=== PATIENT | female | born 1955 | race Caucasian/White ===

== ENCOUNTER 2019-02-06 13:25 | Outpatient (CLI) | payer OTHER | END 2019-02-06 14:20 | disposition home or self-care (01) | LOC: MRD 13:25 → EDSTATUS 02-10 07:30 | PROVIDERS: ATTEND Surgery | DX: Z01.818 Encounter for other preprocedural examination (principal) | CPT/HCPCS: 71045; 93005 ==

== ENCOUNTER 2019-03-14 12:29 | Outpatient (CLI) | payer OTHER ==
[~2019-03-14] VITALS: Ht 165.1 cm; Wt 57.6 kg
[2019-03-17] MEDS ORDERED: LIDOCAINE 1% 500 MG/50 ML VIAL ONE (07:15)
[2019-03-17] MEDS ORDERED: ceFAZolin 1,000 MG VIAL ONE (07:15)
[2019-03-17] MEDS ORDERED: BUPIVACAINE-MPF/EPI 0.25% 30 ML VIAL INJ ONE (07:15)
== END 2019-03-14 23:55 | disposition home or self-care (01) ==
LOC: MRD 12:29 → MDS 03-17 06:07 → MMU 03-17 06:10 → EDSTATUS 03-17 07:30
PROVIDERS: ATTEND Surgery
DX: Z01.818 Encounter for other preprocedural examination (principal); E78.00 Pure hypercholesterolemia, unspecified; Z85.3 Personal history of malignant neoplasm of breast; Z98.890 Other specified postprocedural states
CPT/HCPCS: 71045; 93005; Q0092; J0690; J1644; J2001; J3490; J7060

== ENCOUNTER 2019-04-21 07:12 | Day surgery (SDC) | payer OTHER ==
[~2019-04-21] VITALS: Ht 165.1 cm; Wt 57.2 kg
[2019-04-21] MEDS ORDERED: OMEP20TC12 PO (07:58)
[2019-04-21] MEDS ORDERED: CLARIT (07:58)
[2019-04-21] MEDS ORDERED: AMOX500T3 PO (07:58)
[2019-04-21] MEDS ORDERED: LIDOCAINE 1% 500 MG/50 ML VIAL ONE (08:27)
[2019-04-21] MEDS ORDERED: BUPIVACAINE-MPF/EPI 0.25% 30 ML VIAL INJ ONE (08:27)
[2019-04-21] MEDS ORDERED: ceFAZolin 1,000 MG VIAL ONE (08:27)
[2019-04-21] MEDS ORDERED: PROPOFOL 200 MG/20 ML VIAL IV ONE (09:25)
[2019-04-21] MEDS ORDERED: MORPHINE SULFATE 2 MG/ML SYR IVP PRN (10:20)
[2019-04-21] MEDS ORDERED: ONDANSETRON 4 MG/2 ML VIAL IVP PRN ×2 (10:20→10:25)
[2019-04-21] MEDS ORDERED: HYDROmorphone 1 MG/ML AMP IVP PRN ×2 (10:20→10:25)
[2019-04-21] MEDS ORDERED: MORPHINE SULFATE 4 MG/ML SYR IV PRN (10:20)
[2019-04-21] MEDS ORDERED: HYDROcodone/APAP 5/325 MG 1 TAB TAB PO PRN (10:20)
[2019-04-21] MEDS: HYDROmorphone PFS 2 MG/ML SYR ONE ×2 (10:25→10:35)
== END 2019-04-21 12:00 | disposition home or self-care (01) ==
LOC: MOR 07:12 → MMU 07:13 → MOR 12:00
PROVIDERS: ATTEND Surgery
DX: Z45.2 Encounter for adjustment and management of vascular access device (principal); C50.912 Malignant neoplasm of unspecified site of left female breast; C77.3 Secondary and unspecified malignant neoplasm of axilla and upper limb lymph nodes; E78.00 Pure hypercholesterolemia, unspecified; Z88.0 Allergy status to penicillin; Z88.8 Allergy status to other drugs, medicaments and biological substances
CPT/HCPCS: 36561; 71045; C1788; J0690; J1170; J1644; J2001; J2704; J3490; J7030; J7060; J7120; Q0092; 77003

== ENCOUNTER 2020-07-25 06:21 | Day surgery (SDC) | payer OTHER, SELFPAY ==
[~2020-07-25] VITALS: Ht 165.1 cm; Wt 57.2 kg
[~2020-07-25 06:21] MED LIST: AMOX500T3 PO; CLARIT; OMEP20TC12 PO
[2020-07-25 06:58] LABS: BASOPHILS % (AUTO) 0.1 % (0.0-2.0); EOSINOPHILS # (AUTO) 0.2 K/uL (0-0.4); EOSINOPHILS % (AUTO) 6.5 % (0.0-4.0); HEMATOCRIT 24.1 % (36-48); HEMOGLOBIN 8.1 g/dL (12.0-16.0); LYMPHOCYTES # (AUTO) 0.6 K/uL (2.5-16.5); LYMPHOCYTES % (AUTO) 19.4 % (20.5-51.1); MEAN CORPUSCULAR HEMOGLOBIN 34 pg (27-31); MEAN CORPUSCULAR HGB CONC 34 g/dL (33-37); MEAN CORPUSCULAR VOLUME 100.6 fL (80-94); MONOCYTES # (AUTO) 0.3 K/uL (0.8-1.0); MONOCYTES % (AUTO) 10.9 % (1.7-9.3); NEUTROPHILS % (AUTO) 63.1 % (42.2-75.2); PLATELET COUNT (AUTO) 196 K/uL (140-450); RED CELL DISTRIBUTION WIDTH 13.6 % (11.6-13.7); WHITE BLOOD COUNT (AUTO) 3.1 K/uL (4.8-10.8)
[2020-07-25] MEDS ORDERED: LIDOCAINE/EPI MPF 1%1:200000 30 ML VIAL INJ ONE (07:06)
[2020-07-25] MEDS ORDERED: BUPIVACAINE-MPF/EPI 0.25% 30 ML VIAL INJ ONE (07:06)
[2020-07-25 07:14] LABS: ANION GAP 19.1 (8-16); CARBON DIOXIDE 15.7 mmol/L (21-32); CREATININE 0.4 mg/dL (0.6-1.3); POTASSIUM 3.8 mmol/L (3.5-5.1); TOTAL BILIRUBIN 0.2 mg/dL (0.0-1.0)
[2020-07-25] MEDS ORDERED: BUPIVACAINE-MPF/EPI 0.25% 10 ML VIAL INJ ONE (07:58)
[2020-07-25] MEDS ORDERED: LIDOCAINE/EPI 1% 1:100000 20 ML VIAL INJ ONE (07:58)
[2020-07-25] MEDS ORDERED: fentaNYL citrate 0.05 MG/ML VIAL ONE (08:02)
[2020-07-25] MEDS ORDERED: MIDAZOLAM 2 MG/2 ML VIAL ONE (08:02)
[2020-07-25] MEDS ORDERED: KETOROLAC 30 MG/ML VIAL ONE (08:02)
[2020-07-25] MEDS ORDERED: HYDROmorphone 1 MG/ML AMP IVP PRN (08:40)
[2020-07-25] MEDS ORDERED: HYDROmorphone PFS 2 MG/ML SYR IVP PRN (08:40)
[2020-07-25] MEDS ORDERED: MORPHINE SULFATE 4 MG/ML SYR IV PRN (08:40)
[2020-07-25] MEDS ORDERED: MORPHINE SULFATE 2 MG/ML SYR IVP PRN (08:40)
[2020-07-25] MEDS ORDERED: ONDANSETRON 4 MG/2 ML VIAL IV PRN (08:40)
== END 2020-07-25 09:50 | disposition home or self-care (01) ==
LOC: MDS 06:21 → MMU 06:21 → MDS 09:50
PROVIDERS: ATTEND Surgery
DX: Z45.2 Encounter for adjustment and management of vascular access device (principal); C50.412 Malignant neoplasm of upper-outer quadrant of left female breast; C77.3 Secondary and unspecified malignant neoplasm of axilla and upper limb lymph nodes; Z88.0 Allergy status to penicillin; Z88.6 Allergy status to analgesic agent; Z90.12 Acquired absence of left breast and nipple; Z20.828 Contact with and (suspected) exposure to other viral communicable diseases
CPT/HCPCS: 36415; 36590; 80053; 85025; J0690; J1885; J2001; J2250; J3010; J3490; J7060; J7120; U0003